=== PATIENT | male | born 1940 | race Caucasian/White ===

== ENCOUNTER 2019-06-11 21:32 | Inpatient (IN) ==
[2019-06-11 22:03] LABS: BASO# 0.05 X1000 (0.0-0.2); BASO% 0.5 % (0.0-0.8); EOS# 0.19 X1000 (0.0-0.7); HEMATOCRIT 43.4 % (42.0-52.0); HEMOGLOBIN 14.2 g/dL (14.0-18.0); IMM GRAN# 0.02 X1000 (0.0-0.04); IMM GRAN% 0.2 % (0.0-0.5); LYMPH# 1.66 X1000 (1.2-3.4); LYMPH% 17.1 % (20.5-51.1); MCH 29.6 PG (27-31); MCHC 32.7 g/dL (33-37); MCV 90.6 FL (81-99); MONO# 0.99 X1000 (0.11-0.59); MONO% 10.2 % (1.7-9.3); MPV 11.8 FL (7.4-10.4); PLT 198 X1000 (130-400); RBC 4.79 XMIL (4.7-6.1); RDW 13.3 % (11.5-14.5); WBC 9.71 X1000 (4.8-10.8)
--- NOTE | 2019-06-11 22:03 | EKG Report ---
Test Performed on : 06/11/2019 9:40:22 PM Test Reason : ELEVATED HR Blood Pressure : / mmHG Vent. Rate : 135 BPM Atrial Rate : 159 BPM P-R Int : 000 ms QRS Dur : 076 ms QT Int : 298 ms P-R-T Axes : 000 066 023 degrees QTc Int : 447 ms Atrial fibrillation. with rapid ventricular response. Nonspecific ST and T wave abnormality Abnormal ECG When compared with ECG of 02-OCT-2016 16:39, Atrial fibrillation. has replaced Sinus rhythm. Vent. rate has increased BY [address] no longer elevated in Inferior leads ST now depressed in Anterolateral leads T wave amplitude has increased in Anterior leads Nonspecific T wave abnormality now evident in Lateral leads Unconfirmed Result
--- NOTE | 2019-06-11 22:06 | Diag Imaging Result Doc PS360 ---
EXAM: CHEST-PORTABLE 06/11/2019 HISTORY: CLEAN TECHNIQUE: AP portable upright at 2158 COMMENT: Considering differences in technique are has been no significant change in the appearance of the chest since 10/02/2016. IMPRESSION: No acute disease. Electronically signed by Gerry Amanda 06/11/2019 10:03 PM
[2019-06-11] MEDS ORDERED: CARDIZEM IV ONE ×2 (22:10→22:30)
[2019-06-11] MEDS ORDERED: CARDIZEM ONE (22:16)
[2019-06-11] MEDS ORDERED: NS 1,000 ML ONE (22:24)
[2019-06-11 22:25] LABS: AGAP 9; ALB/GLOB RATIO 1.5; ALBUMIN 4.1 g/dL (3.5-5.0); ALKALINE PHOSPHATASE 96 U/L (32-122); BUN 19 mg/dL (8-22); CALCIUM 9.9 mg/dL (8.8-10.2); CHLORIDE 103 mmol/L (98-107); CK PROFILE 74 U/L (24-204); COSMO 282; CREATININE 1.1 mg/dL (0.7-1.2); ESTIMATED GFR > 60; GLUCOSE 111 mg/dL (70-104); GOT 20 U/L (10-34); GPT 16 U/L (10-44); SODIUM 140 mmol/L (136-145); TCO2 28 mmol/L (25-35); TOTAL BILIRUBIN 0.57 mg/dL (0.20-1.00); TOTAL PROTEIN 6.9 g/dL (6.3-8.3)
[2019-06-11] MEDS ORDERED: NS 1,000 ML IV ONE (22:31)
--- NOTE | 2019-06-11 23:28 | PROVIDER DOCUMENTATION ---
This chart was entered by Oralia Zhao Scribe, acting as scribe for Rigoberto Villafuerte MD. HPI-Cardiac General - General Chief Complaint: Palpitations Stated Complaint: HEART OUT OF RYTHM Time Seen by Provider: 06/11/19 21:42 Source: patient Allergies/Adverse Reactions: Patient Allergies Allergy/AdvReac Type Severity Reaction Status Date / Time levofloxacin [From Levaquin] Allergy Unknown Verified 10/02/16 14:36 Home Medications: Home Medication List Medication Instructions Recorded Confirmed Last Taken Type Aspirin [Aspirin EC] 81 mg PO DAILY 03/20/14 10/02/16 10/01/16 History Atorvastatin Calcium [Lipitor] 80 mg PO DAILY 03/20/14 10/02/16 10/01/16 History Dabigatran Etexilate Mesylate 150 mg PO DAILY 03/20/14 10/02/16 10/02/16 History [Pradaxa] Propafenone HCl [Propafenone HCl 325 mg PO DAILY 03/20/14 10/02/16 10/02/16 History ER] - History of Present Illness-Cardiac Nature of Presenting Problem: pt is a 6 yr old male presenting with complaint of palpitations, hx of AFib with cardiac ablation. pt is on no current rhythm control medications or blood thinner. pt denies any chest pain or shortness of breath. pt reports 6hr drive home from [place] today, palpitations onset while lying in bed tonight. Quality of Pain: reports: none Severity in ED: moderate Onset/Duration: 1-3 hours ago Timing: still present Context/Activities at Onset: reports: rest Modifying Factors: improves with: nothing Palpitation Quality: irregular History of arrythmia: reports: A-Fib Recent use of:: reports: no stimulants Nitro Today/Relief: reports: no nitro taken today Aspirin Treatment Today: reports: no aspirin today Associated Symptoms: denies: dizziness, fatigue, fever/chills, nausea, shortness of breath, vomiting Similar Symptoms Previously?: Yes Recently Seen Here or By Another Healthcare Provider: No Review of Systems - Adult - REVIEW OF SYSTEMS - ADULT Constitutional: denies: chills, fever Eyes: denies: blurred vision, double vision Ears, Nose, Mouth & Throat: denies: ear pain, sinus problem, throat pain Cardiovascular: reports: palpitations. denies: chest pain, syncope Respiratory: denies: chronic cough, cough, dyspnea on exertion, shortness of breath Gastrointestinal: denies: nausea, vomiting Genitourinary: reports: no symptoms reported Musculoskeletal: denies: back pain, muscle aches, neck pain Integumentary: reports: no symptoms reported Neurological: denies: dizziness/vertigo, headache/migraines, syncope Psychiatric: reports: no symptoms reported Endocrine: reports: no symptoms reported Hematologic/Lymphatic: reports: no symptoms reported Allergic/Immunologic: reports: no symptoms reported All Other Systems: Reviewed and Negative Past History - Adult - PAST MEDICAL HISTORY-ADULT Review of Records: reports: Old Records Reviewed, Nursing Assessment Review, Medications Reviewed, Social history reviewed & non-contributory. Major Childhood Illnesses: reports: denies history Cardiovascular: reports: A-Fib, CAD, HTN, hyperlipidemia Respiratory: reports: denies history Gastrointestinal: reports: GERD Obstetrical/Gynecological: reports: denies history Genitourinary: reports: prostate cancer (workup in process for prostate nodule) Musculoskeletal: reports: denies history Neurological: reports: denies history Endocrine/Immune: reports: denies history Other Conditions: reports: cataract/glaucoma - PRIOR SURGERIES/PROCEDURES Surgical/Procedure History: reports: hernia repair, orthopedic (extremity) - IMMUNIZATION STATUS Childhood Immunizations: See Nurse Assessment Flu Vaccine: See Nurse Assessment - FAMILY HISTORY Family History: reviewed, not pertinent - SOCIAL HISTORY Smoking: quit greater than 1 year Substance Use: alcohol Alcohol Use Frequency: every day Living Situation: family Physical Exam-General - PHYSICAL EXAM-ADULT Initial Vital Signs Reviewed: Yes - CONSTITUTIONAL General Appearance: appears well, alert, no apparent distress - EYES Eyes: PERRL/EOMI - HEAD, EARS, NOSE, MOUTH & THROAT HENMT: normocephalic/atraumatic, moist mucous membranes - NECK Neck: non-tender, full range of motion, supple, normal inspection - RESPIRATORY Respiratory: chest non-tender, lungs clear, normal breath sounds, no respiratory distress, no accessory muscle use - CARDIOVASCULAR Cardiovascular: normal peripheral pulses, no edema, tachycardia, irregularly irregular - GASTROINTESTINAL (ABDOMEN) Abdominal Exam: normal bowel sounds, non tender, soft - LYMPHATIC Lymphatic: no adenopathy - MUSCULOSKELETAL Back Exam: normal inspection, no CVA tenderness, no vertebral tenderness Extremity: normal range of motion, non-tender, normal gait, normal inspection - SKIN Integumentary: normal color, normal turgor, warm/dry - NEUROLOGIC Neurologic: grossly normal, no motor/sensory deficits - PSYCHIATRIC Psych/Mental Status: normal mood/affect, normal thought content, normal thought process, oriented x 3 - HEART Score HEART Score: History: Slightly Suspicious Progress - PLAN OF CARE/RESULTS Progress/Plan/Lab Results: Vital Signs - 8 hr 06/11/19 21:42 Temperature 97.4 F L Pulse Rate 134 H Respiratory Rate 18 Blood Pressure 115/92 O2 Sat by Pulse Oximetry 99 Laboratory Results - last 24 hr 06/11/19 06/11/19 06/11/19 21:52 21:52 21:52 WBC 9.71 RBC 4.79 Hgb 14.2 Hct 43.4 MCV 90.6 MCH 29.6 MCHC 32.7 L RDW Std Deviation 13.3 Plt Count 198 MPV 11.8 H Immature Gran % (Auto) 0.2 Neut % (Auto) 70.0 Lymph % (Auto) 17.1 L Garden % (Auto) 10.2 H Eos % (Auto) 2.0 Baso % (Auto) 0.5 Immature Gran # (Auto) 0.02 Neut # (Auto) 6.80 H Lymph # (Auto) 1.66 Garden # (Auto) 0.99 H Eos # (Auto) 0.19 Baso # (Auto) 0.05 Sodium 140 Potassium 4.0 Chloride 103 Carbon Dioxide 28 Anion Gap 9 BUN 19 Creatinine 1.1 Estimated GFR/1.73 m2 > 60 BUN/Creatinine Ratio 17 Glucose 111 H Calculated Osmolality 282 Calcium 9.9 Total Bilirubin 0.57 AST 20 ALT 16 Alkaline Phosphatase 96 Creatine Kinase 74 Troponin T High Sens 8 Total Protein 6.9 Albumin 4.1 Globulin 2.8 Albumin/Globulin Ratio 1.5 Orders Category Date Time Status CHEST-PORTABLE [RAD] Stat Exams 06/11/19 21:48 Completed CBC WITH DIFF [HEME] Stat Lab 06/11/19 21:52 Completed CK PROFILE [SP CHEM] Stat Lab 06/11/19 21:52 Completed COMPREHENSIVE METABOLIC PANEL [CHEM] Stat Lab 06/11/19 21:52 Completed D-DIMER [COAG] Stat Lab 06/11/19 21:52 Received TROPONIN T HIGH SENSITIVITY Stat Lab 06/11/19 21:52 Completed UA NIMS W/REFLEX CULT [URINALYSIS] Stat Lab 06/11/19 21:48 Uncollected 0.9% Sodium Chloride Inj [Ns] 1,000 ml Med 06/11/19 22:24 Discontinued .ROUTE As directed 0.9% Sodium Chloride Inj [Ns] 1,000 ml Med 06/11/19 22:31 Discontinued IV 999 mls/hr Digoxin [Lanoxin] Med 06/11/19 23:56 Once 170 microgm IV ONCE ONE Diltiazem [Cardizem] Med 06/11/19 22:10 Discontinued 15 mg IV NOW ONE Diltiazem [Cardizem] Med 06/11/19 22:16 Discontinued 25 mg .ROUTE .STK-MED ONE Diltiazem [Cardizem] Med 06/11/19 22:30 Discontinued 5 mg IV NOW ONE EKG [EKG] Stat Ther 06/11/19 21:36 Draft EKG [EKG] Stat Ther 06/11/19 22:34 Ordered Result Diagrams: 06/11/19 21:52 06/11/19 21:52 - REASSESSMENT Reassessment #1 Status: improving (Patient,s papitation was imoproving but rate has been bouncing between 94 and 120 after cardizen. BP dropped to the 80s sbp with treatment and responded to IVF I liter. SBP is now around 94 and 120 hence the reason for admission) - EKG 1 Time of EKG reading by physician:: 21:40 EKG Read and Signed by:: Skylar Juarez EKG Interpretation (*Must complete 3 of following elements*): Abnormal Rate: 135 Rhythm: afib with RVR ST Wave: non-specific ST changes 2 Time of EKG reading by physician:: 22:38 EKG Read and Signed by:: Rigoberto Villafuerte EKG Interpretation (*Must complete 3 of following elements*): Abnormal Rate: 99 Rhythm: afib Royal: normal QRS: normal LA Interval: normal ST Wave: normal Prior EKG Comparison: changes noted (improved) - XRAY 1 XRAY Study: Chest ( EXAM: CHEST-PORTABLE 06/11/2019 HISTORY: CLEAN TECHNIQUE: AP portable upright at 2158 COMMENT: Considering differences in technique are has been no significant change in the appearance of the chest since 10/02/2016. IMPRESSION: No acute disease. Electronically signed by Gerry Amanda 06/11/2019 10:03 PM [id number]) Impression: Normal ( Signed EXAM: CHEST-PORTABLE 06/11/2019 HISTORY: CLEAN TECHNIQUE: AP portable upright at 2158 COMMENT: Considering differe nces in technique are has been no significant change in the appearance of the chest since 10/02/2016. IMPRESSION: No acute disease. Electronically signed by Gerry Amanda 06/11/2019 10:03 PM 06/11/192202 Interpreting Physician: Gerry Amanda MD Dictated Date/Time: 06/11/192201 cc: Skylar Juarez MD; Iraj Serrano MD) Comparison with other Films: no changes (10/02/16) - CONSULTS/PCP/HOSPITALIST Notification #1 *Consult/PCP/Hospitalist*: Dr Vee Time Discussed: 23:45 Consult Disposition: Admit (Accepts admission. Wants pt to be given digoxin) Departure - Departure Date of Disposition Decision: 06/11/19 Time of Disposition Decision: 23:57 DIAGNOSIS: Atrial fibrillation with RVR Disposition: ADMITTED INPATIENT 09 Certified Medical Emergency: Emergent Condition: Fair Referrals and Follow-Ups: Iraj Serrano MD [Primary Care Provider] - - Critical Care Note This patient required my direct & personal management of CC.: No Attestation - Physician/ DIOR Attestation Patient care was provided by Advanced Practice Provider:: No The physician spent face to face time with patient:: Yes Advanced Practice Provider documentation review:: Supervising physician onsite and consulted in the evaluation and care of this patient. The physician did have a face to face encounter with the patient. This chart was documented by the indicated scribe, (Oralia Zhao, Nicolas) and accurately reflects the services I performed and decisions made by me, Rigoberto Hutchinson MD, as attested by the provider's signature.
[2019-06-11] MEDS ORDERED: LANOXIN IV ONE (23:56)
--- NOTE | 2019-06-12 | EKG Report ---
Test Performed on : 06/11/2019 10:36:18 PM Test Reason : post conversion Blood Pressure : / mmHG Vent. Rate : 099 BPM Atrial Rate : 096 BPM P-R Int : 000 ms QRS Dur : 082 ms QT Int : 358 ms P-R-T Axes : 000 047 038 degrees QTc Int : 459 ms Atrial fibrillation. Abnormal ECG When compared with ECG of 11-JUN-2019 21:40, (Unconfirmed) ST no longer depressed in Anterolateral leads Nonspecific T wave abnormality no longer evident in Inferior leads Nonspecific T wave abnormality no longer evident in Lateral leads Unconfirmed Result
[2019-06-12 00:27] LABS: URINE SOURCE CLEAN CATCH
[2019-06-12 00:29] LABS: BILIRUBIN URINE NEGATIVE (NEGATIVE); BLOOD URINE NEGATIVE (NEGATIVE); COLOR STRAW; GLUCOSE URINE NEGATIVE (NEGATIVE); KETONE URINE NEGATIVE (NEGATIVE); LEUKOCYTES URINE NEGATIVE (NEGATIVE); NITRITE URINE NEGATIVE (NEGATIVE); PH URINE 6.5; PROTEIN URINE NEGATIVE (NEGATIVE); TURBIDITY URINE CLEAR (CLEAR); UR EPITHELIAL CELLS <10 /HPF (<10); URINE BACTERIA NEGATIVE /HPF; URINE RBC <10 /HPF (<10); URINE WBC <10 /HPF (<10); UROBILINOGEN URINE NORMAL (NORMAL)
[2019-06-12] MEDS ORDERED: ELIQUIS PO ONE (00:49)
[2019-06-12] MEDS: CARDIZEM PO SCH ×2 (01:29→08:00)
--- NOTE | 2019-06-12 02:02 | HISTORY AND PHYSICAL ---
ADDENDUM: A patient of Dr. Serrano. Mr. Weston is a pleasant 79-year-old white male with history of atrial fibrillation and hyperlipidemia status post ablation 2 years ago and has since been on aspirin and off anticoagulation. Came home from a vacation in [place]. While he was lying in bed felt his heart fluttering. Tried to use his blood pressure medication, but the rate was too high and decided to come in for evaluation. No chest pain. No fever. No shortness of breath or lightheadedness. No antecedent history of lower extremity pain and swelling. On arrival to the ER, his heart was in the 140s. He was given a total of 20 mg of Cardizem which caused his blood pressure to drop into the 80s. He has since received a bolus of normal saline and his heart rate is in the 110s systolic. Currently, patient is asymptomatic. He was given digoxin. His heart rate is now between 90 and 110. He will be admitted. He will be started on Eliquis preemptively and Cardiology will be consulted and an echo will be ordered. We will put him on p.o. Cardizem. Check a thyroid function test. His D-dimer was only 0.55 which for his age will be considered within normal range. cc: Alexis Vee MD
[2019-06-12] MEDS ORDERED: TYLENOL PO PRN (03:53)
[2019-06-12] MEDS ORDERED: ZOFRAN IV PRN (03:53)
[2019-06-12] MEDS: LANOXIN IV SCH ×3 (04:43→12:15)
[2019-06-12 05:59] LABS: BASO# 0.04 X1000 (0.0-0.2); BASO% 0.6 % (0.0-0.8); EOS# 0.17 X1000 (0.0-0.7); EOS% 2.5 % (0.0-10.0); HEMATOCRIT 38.2 % (42.0-52.0); HEMOGLOBIN 12.5 g/dL (14.0-18.0); LYMPH# 1.44 X1000 (1.2-3.4); MCH 29.8 PG (27-31); MCHC 32.7 g/dL (33-37); MONO# 0.73 X1000 (0.11-0.59); MONO% 10.7 % (1.7-9.3); MPV 11.8 FL (7.4-10.4); NEUT# 4.47 X1000 (1.4-6.5); NEUT% 65.2 % (42.2-75.2); PLT 173 X1000 (130-400); RDW 13.2 % (11.5-14.5); WBC 6.85 X1000 (4.8-10.8)
--- NOTE | 2019-06-12 06:09 | EKG Report ---
Test Performed on : 06/12/2019 03:54:40 AM Test Reason : Recent A-fib with conversion to SR Blood Pressure : / mmHG Vent. Rate : 070 BPM Atrial Rate : 070 BPM P-R Int : 000 ms QRS Dur : 078 ms QT Int : 380 ms P-R-T Axes : 000 054 043 degrees QTc Int : 410 ms Accelerated Junctional rhythm. Abnormal ECG When compared with ECG of 11-JUN-2019 22:36, (Unconfirmed) Junctional rhythm. has replaced Atrial fibrillation. Unconfirmed Result
[2019-06-12 06:25] LABS: AGAP 11; BUN 14 mg/dL (8-22); CALCIUM 8.4 mg/dL (8.8-10.2); CHLORIDE 107 mmol/L (98-107); COSMO 284; CREATININE 0.9 mg/dL (0.7-1.2); ESTIMATED GFR > 60; GLUCOSE 102 mg/dL (70-104); POTASSIUM 3.9 mmol/L (3.5-5.1); SODIUM 142 mmol/L (136-145); TCO2 24 mmol/L (25-35)
[2019-06-12 06:38] LABS: INR 1.12; PROTIME 14.5 Seconds (11.0-16.0)
[2019-06-12 06:39] LABS: PTT 30.9 Seconds (22.3-41.8)
[2019-06-12 06:55] LABS: FREE T4 1.08 ng/dL (0.93-1.70); TSH 2.5 uIUmL (0.27-4.20)
--- NOTE | 2019-06-12 07:24 | HISTORY AND PHYSICAL ---
PRIMARY CARE PROVIDER: Dr. Iraj Serrano. CHIEF COMPLAINT: Palpitations. HISTORY OF PRESENT ILLNESS: Mr. Weston is a very pleasant, 79-year-old, male with a past medical history most notable for atrial fibrillation, status post ablation 2 years ago, hyperlipidemia, glaucoma, intracranial hemorrhage secondary to trauma from a fall. The patient states that since his ablation, that the only medications he takes at this time are his eyedrops for his glaucoma, and an 80 mg aspirin p.o. daily, and atorvastatin 40 mg p.o. at bedtime. The patient states that he previously took Pradaxa, though since his ablation, has not taken any other anticoagulants, and does not take any medications for heart rate control. He did return this evening from a long vacation in [place] for 1 month. He states that he did ride in the car about 6 hours today, and after getting home and was lying in the bed, began to feel his heart racing, and felt like he was skipping beats. He did present to the ER for further evaluation. The patient denies any dizziness, headache. He denies any chest pain, shortness of breath, or cough. He denies any fever, body aches, or chills. He denies any abdominal pain, nausea, vomiting, or diarrhea. He denies any hematochezia or melena. He denies any dysuria or urinary frequency. He also denies any pain, numbness, tingling, or swelling in extremities. He also denies any recent illnesses or not feeling well. Upon evaluation in the ER, the patient's initial EKG showed atrial fibrillation with RVR at a rate of 135. He was given medication of Cardizem. He did have a total of 20 mg IV push. He was given 170 mcg of digoxin as well. The patient's heart rate has improved, though he is still maintaining in the 110s to 120s. We are going to try to treat the patient's atrial fibrillation with p.o. Cardizem. We are going to go ahead and give him Cardizem 30 mg p.o. every 6 hours, as well as digoxin 125 mcg IV every 4 hours x3 doses. While in the ER, after being given the Cardizem initially, his blood pressure did drop slightly into the 80s systolically, though he was given a 1 L normal saline bolus, and this has improved. He has not had any further issues with hypotension. Unfortunately, at the time of my examination, the patient in the ER, he did convert to a sinus rhythm, and has been maintaining heart rate anywhere from 60 to 80. Chest x-ray was also performed, which did not show any acute abnormalities. Laboratory results were unremarkable. All electrolytes are within limits. We are adding a magnesium level on. Up until just prior to my examination, the patient's heart rate was still elevated, and he was having periods where he was jumping up into the 140s and 160s. Given this, we are going to place him for admission for a PVC bed at this time, though if the patient's heart rate remains rate controlled, we can likely triage him down to a medical bed with telemetry. REVIEW OF SYSTEMS: A 14-point review of systems was conducted with the patient, and all were negative, except for pertinent positives mentioned in the above HPI. PAST MEDICAL HISTORY: 1. History of atrial fibrillation, status post ablation 2 years ago. 2. Diagnosis of prostate cancer. The patient states that he has recently had a second biopsy, though that did show that it was benign. Other than this, he has not received any other treatment or had any other procedures performed. 3. Hyperlipidemia. 4. Glaucoma. 5. History of intracranial bleed 2 years ago secondary to trauma from a fall. PAST SURGICAL HISTORY: 1. Bilateral inguinal hernia repair. 2. Tonsillectomy. 3. Right knee surgery x2. 4. Bilateral ptosis repair. 5. Brain surgery to repair intracranial bleed secondary to trauma from a fall. SOCIAL HISTORY: The patient is a former smoker. He quit smoking 50 years ago. He did smoke for a period of 10 years. He denies any illicit drug use, though he does report that he drinks approximately 1 beer a day. He states that if he goes for a period without drinking, that he does not have any withdrawal symptoms, such as shakiness or agitation. FAMILY HISTORY: Positive for his mother having a history of diabetes mellitus. His father had a history of heart disease and did have a heart attack. He does have a sister, who has a history of diabetes as well. ALLERGIES: The patient has allergies to Levaquin. HOME MEDICATIONS: 1. Aspirin 81 mg p.o. daily. 2. Atorvastatin 40 mg p.o. at bedtime. 3. Lumigan 1 drop in both eyes at bedtime. 4. Timolol maleate 1 drop to both eyes every a.m. DIAGNOSTIC DATA: White blood cell count is 9710, hemoglobin 14.2, hematocrit 43.4, platelet count is 198,000. D-dimer 0.55. Sodium 140, potassium 4, chloride 103, serum bicarb is 28, BUN 19, creatinine 1.1, with a GFR greater than 60, glucose 111, calcium 9.9. Liver function tests within normal limits. CK 74, troponin is 8. Troponin T high sensitivity is 8. His urinalysis was obtained via clean catch, and was negative for any signs of infection, was negative for protein, glucose, ketones, blood, nitrites, leukocytes, white blood cells, or bacteria. EKG did show atrial fibrillation with rapid ventricular response at a rate of 135, with a QTc of 447. Though at this time, the patient does appear to have converted into sinus rhythm, we have ordered a repeat EKG. Chest x-ray shows no acute abnormalities as per Radiology. PHYSICAL EXAMINATION: VITAL SIGNS: Temperature 97.4 degrees, heart rate 70, respirations 18, blood pressure is 115/92, oxygen saturation is 99% on room air. GENERAL: Mr. Weston is a very pleasant, 79-year-old, male. He was resting in the ER stretcher. He was in no acute distress. He was awake, alert, and able to answer questions appropriately. HEENT: Head is atraumatic, normocephalic. Pupils are equal, round, reactive to light, were 3 mm bilaterally and brisk. Oral mucosa is moist. Oropharynx is clear. NECK: Supple. Trachea midline. CARDIOVASCULAR: The patient has S1, S2 present. No murmurs, gallops, or rubs appreciated, with a regular rate and rhythm. The patient does appear to be in sinus rhythm according to the bedside monitor, maintaining in a rate anywhere from 60s to 80s. PULMONARY: The patient has symmetrical chest expansion bilaterally. Lung sounds are clear to auscultation in bilateral full mojica. ABDOMEN: Soft, nontender, nondistended. Bowel sounds are present in all 4 quadrants, were normoactive. EXTREMITIES: No cyanosis or edema noted. Pulse, motor, and sensory is intact in all extremities. Radial pulses were 2+ bilaterally. Pedal pulses were 1+ bilaterally. The patient did have a slight indention where his sock was on his leg, though upon further examination, he does not appear to have any other edema or swelling. His socks are actually quite tight fitting. I think this is likely secondary to this. INTEGUMENTARY: The patient's skin is pink, warm, and dry. NEUROLOGICAL: The patient is alert and oriented to person, place, time, and situation. There were no focal neurological deficits noted. ASSESSMENT AND PLAN: 1. Atrial fibrillation. At this time, after being given intravenous Cardizem, intravenous digoxin, and continue with oral Cardizem at this time, the patient has converted into a sinus rhythm that is rate control, with the heart rate maintaining in the 60 to 80 range. Other than some palpitations and feeling like his heart was racing and skipping beats prior to and upon his arrival to the emergency room, he has not reported any other symptoms. He denies any chest pain. We will continue with Cardizem 30 mg by mouth every 6 hours. Will do 3 doses of digoxin 125 mcg intravenously every 4 hours. We have given the patient 1 dose of Eliquis 5 mg by mouth. We will perform an echocardiogram in the morning. Will continue with a series of cardiac enzymes. We have placed a consult with Cardiology. Will await their evaluation and further recommendations for management. We have also ordered some thyroid studies as well. 2. Hyperlipidemia. Will continue with atorvastatin. 3. Glaucoma. Will continue his timolol and Lumigan. 4. Venous thromboembolism prophylaxis is currently being provided with the patient receiving a dose of Eliquis. Though, we will leave further discretion for anticoagulation to Cardiology. The patient will be placed on the PVC unit at this time, though if his heart rate does remain controlled, he can likely be triaged down to a medical bed with telemetry. He will be on a heart healthy diet. Will repeat a CBC, BMP, and a series of cardiac enzymes. We have also added on thyroid studies. Will perform a PT and PTT in the morning. We have ordered a magnesium level as well. Further orders and recommendations pending hospital course, diagnostic studies, and physician evaluation. Dictated by RAMANDEEP Erwin for Alexis Vee MD cc: MD Iraj Alexander MD
[2019-06-12] MEDS ORDERED: TIMOPTIC 0.5% OPH SOLUTION BOTH EYES SCH (09:00)
[2019-06-12] MEDS ORDERED: ASPIRIN EC PO SCH (09:00)
--- NOTE | 2019-06-12 12:58 | EKG Report ---
Test Performed on : 06/12/2019 09:21:39 AM Test Reason : RHYTHM CHECK Blood Pressure : / mmHG Vent. Rate : 065 BPM Atrial Rate : 065 BPM P-R Int : 140 ms QRS Dur : 078 ms QT Int : 390 ms P-R-T Axes : 061 058 057 degrees QTc Int : 405 ms Normal sinus rhythm. Normal ECG When compared with ECG of 12-JUN-2019 03:54, (Unconfirmed) Sinus rhythm. has replaced Junctional rhythm. Unconfirmed Result
--- NOTE | 2019-06-12 13:59 | ECHO REPORT ---
ORDER DATE: 06/12/2019 INDICATION: Atrial fibrillation. FINDINGS: 1. The right atrium appears normal in size. 2. Moderate tricuspid regurgitation. RV systolic pressure of 55 suggesting pulmonary hypertension. 3. Normal RV size and systolic function. 4. Mild pulmonic insufficiency. 5. Borderline left atrial enlargement with a volume index of 28. 6. No mitral valve prolapse. Mild mitral regurgitation. No mitral stenosis. 7. Normal LV size, end-diastolic dimension of 4.3 cm. Normal wall thicknesses with a posterior and interventricular septal wall thickness of 1 cm each. Normal LV systolic function. Estimated EF of 60% with normal wall motion. 8. Aortic valve opens well. It is sclerotic. It is not stenotic. There is mild insufficiency. The valve is trileaflet. 9. Aorta appears normal in visualized segments. 10. No pericardial effusion seen. cc: MD Iraj Menon MD
[2019-06-12] MEDS ORDERED: TOPROL XL PO SCH (15:00)
[2019-06-12 17:39] VITALS: BP 142/91
[2019-06-12] MEDS ORDERED: LUMIGAN 0.01% OPH SOLUTION BOTH EYES SCH (21:00)
[2019-06-12] MEDS ORDERED: LIPITOR PO SCH (21:00)
--- NOTE | 2019-06-12 21:03 | CONSULTATION ---
DATE OF CONSULTATION: 06/12/2019 IMPRESSION: 1. Paroxysmal atrial fibrillation with recurrent episode of atrial fibrillation today, spontaneously converted back to sinus rhythm. The patient has had paroxysmal atrial fibrillation for approximately 4 years and is status post previous atrial fibrillation ablation procedure 2 years ago. 2. History of fall without loss of consciousness two years ago with resultant intracranial hemorrhage while on Pradaxa. Pradaxa discontinued at that time. Patient has been stable from a neurologic standpoint since then. RECOMMENDATIONS: 1. Add low-dose metoprolol for rate control. 2. At this point, resuming anticoagulation with Eliquis 5 mg twice daily is certainly reasonable. Given recurrence of atrial fibrillation, the risk benefit ratio at this point, now 2 years out from previous traumatic head injury favors going ahead with anticoagulation. HISTORY: This 79-year-old white male with past history of paroxysmal atrial fibrillation was admitted through the emergency room with some palpitations and ECG evidence of recurrent atrial fibrillation. He has spontaneously converted back to sinus rhythm. He had mild tachycardia with his atrial fibrillation. He has had atrial fibrillation on a paroxysmal basis for about 4 or 5 years. He suffered a fall without loss of consciousness while visiting the [place], [place] area 2 years ago. He struck his forehead on the ground and suffered traumatic intracranial hemorrhage. He was on Pradaxa at that time. There was no loss of consciousness. He has no gait instability. He was taken off Pradaxa. He subsequent underwent radiofrequency ablation for atrial fibrillation (pulmonary vein isolation procedure). He has not been aware of any recurrence of atrial fibrillation until here recently. Prior to come to the emergency room, he relates some palpitations and believed he was back in atrial fibrillation. He does not recall any other palpitations for the last couple years. PAST MEDICAL HISTORY: 1. Paroxysmal atrial fibrillation. 2. Prostate cancer. 3. Hyperlipidemia. 4. Glaucoma. 5. History of fall without loss of consciousness resulting in intracranial hemorrhage approximately 2 years ago. Patient on Pradaxa at that time. PAST SURGICAL HISTORY: Includes bilateral inguinal hernia repair, tonsillectomy, unspecified right knee surgery on 2 occasions, bilateral ptosis repair, and neurosurgical procedure to alleviate intracranial hemorrhage related to trauma from a fall. ALLERGIES: He is allergic or intolerant to Levaquin. MEDICATIONS PRIOR TO ADMISSION: As listed. SOCIAL HISTORY: He quit smoking 50 years ago. He is . He previously worked for the [employer] program locally. He drinks infrequent beer. FAMILY HISTORY: Noncontributory. There is no family history of early coronary disease. REVIEW OF SYSTEMS: Pulmonary: Noncontributory. Gastrointestinal: Noncontributory. Constitutional: Noncontributory. Remainder of review of systems negative/noncontributory beyond history present illness with 14 total systems reviewed. PHYSICAL EXAMINATION: General: This is a pleasant, older white male in no distress. Vital signs: Blood pressure 128/74, heart rate 73, oxygen saturation 98%. HEENT: Extraocular movements appear intact. Mucous membranes are moist. Neck: Supple. No jugular venous distention. No carotid bruits. Chest: Clear to auscultation. Cardiac Exam: Reveals a regular rate and rhythm without appreciable murmur or gallop. Abdomen: Soft. Bowel sounds are normal. Extremities: Without edema. Neurologic: Reveals him to be alert and fully oriented. Speech is fluent. Moves all 4 extremities equally well. Skin: Warm dry. Psychiatric: Reveals mood to be appropriate. DIAGNOSTICS: A 12 lead EKG obtained late last night demonstrates atrial fibrillation with ventricular rate response of 135 beats per minute and nonspecific ST and T-wave abnormality. Repeat 12 lead EKG this morning demonstrates baseline artifact and probable normal sinus rhythm with occasional premature atrial complex. LABORATORY DATA: Includes a white blood cell count 6.5, hematocrit 38.2 hemoglobin 12.5, platelet count 173,000. Sodium 142, potassium 3.9, chloride 107, carbon dioxide 24, BUN 14, creatinine 0.9. Glucose 102. CPK 74. Followup CPK 63 and 59. Troponin T high-sensitivity 8 with a followup troponin T high-sensitivity 11 and 10. TSH 2.5. cc: MD Iraj Barnard MD
== END 2019-06-12 17:39 | disposition home or self-care (01) | DRG 310 ==
LOC: ED 21:32 → EDIPHOLD 06-12 04:38 → SUATTDRO 06-12 04:38 → 2N 06-12 14:51 → EDIPHOLD 06-12 15:27
PROVIDERS: ADMIT Internal Medicine; ATTEND Internal Medicine